=== PATIENT | female | born 1960 | race Caucasian/White ===

== ENCOUNTER 2025-02-16 12:08 | Inpatient (IN) ==
[2025-02-16] MEDS ORDERED: IOPAMIDOL 100 ML BOTTLE IV ONE (12:09)
[2025-02-16 12:54] LABS: Basophils # (Auto) 0.02 K/mcL (0.00-0.30); Basophils % (Auto) 0.1 % (0.0-2.0); Eosinophils # (Auto) 0.05 K/mcL (0.00-0.70); Eosinophils % (Auto) 0.3 % (0.0-7.0); Hematocrit 45.3 % (34.1-44.9); Hemoglobin 14.7 g/dL (11.2-15.7); Lymphocytes # (Auto) 1.51 K/mcL (1.50-4.80); Lymphocytes % (Auto) 9.0 % (15.5-49.0); Mean Corpuscular HGB Conc 32.5 g/dL (31.0-36.0); Monocytes # (Auto) 1.75 K/mcL (0.10-0.90); Monocytes % (Auto) 10.4 % (1.0-12.0); Neutrophils % (Auto) 80.0 % (38.0-78.0); Platelet Count 283 K/mcL (140-440); RBC 4.83 M/mcL (3.59-5.38); WBC 16.8 K/mcL (4.5-11.0)
[2025-02-16 13:03] LABS: ALT/SGPT 20 U/L (<40); AST/SGOT 16 U/L (<32); Albumin 4.0 gm/dL (3.2-5.2); Albumin/Globulin Ratio 1.5 (1.0-2.3); Alkaline Phosphatase 84 U/L (39-117); Anion Gap 13.0 (8.0-16.0); Bilirubin,Total 1.0 mg/dL (0.1-1.0); Blood Urea Nitrogen 10 mg/dL (8-23); Calcium 9.3 mg/dL (8.6-10.4); Carbon Dioxide 24 mmol/L (22-30); Chloride 98 mmol/L (96-108); Globulin 2.7 gm/dL (2.2-3.7); Glucose 108 mg/dL (70-105); Potassium 3.6 mmol/L (3.3-5.1); Sodium 135 mmol/L (133-145)
[2025-02-16 14:03] LABS: Bilirubin,Urine Negative (Negative); Color,Urine Yellow; Glucose,Urine (UA) Negative (Negative); Ketones,Urine 80 mg/dL (Negative); Leukocyte Esterase,Urine Trace /uL (Negative); PH,Urine 7.0 (5.0-9.0); Protein,Urine 30 mg/dL (Negative); Specific Gravity,Urine 1.020 (1.000-1.035); Urobilinogen,Urine Normal
[2025-02-16] MEDS: PIPERACILLIN SODIUM/TAZOBACTAM 3.375 GM in DEXTROSE 5% IN WATER 50 ML IV ONE (15:00)
[2025-02-16] MEDS ORDERED: ONDANSETRON 4 MG/2 ML VIAL IV PRN (15:44)
[2025-02-16] MEDS ORDERED: fentaNYL 100 MCG/2 ML VIAL IV PRN (15:49)
[2025-02-16] MEDS: 0.9 % SODIUM CHLORIDE 1,000 ML IV SCH (16:10)
[2025-02-16] MEDS: ACETAMINOPHEN 1,000 MG/100 ML BAG IV SCH (16:15)
[2025-02-16] MEDS: PANTOPRAZOLE 40 MG VIAL IV SCH (16:15)
[2025-02-16] MEDS: PIPERACILLIN SODIUM/TAZOBACTAM 3.375 GM in DEXTROSE 5% IN WATER 100 ML IV SCH ×2 (16:22→22:30)
[2025-02-16 16:29] LABS: INR 1.1 (0.9-1.1); Prothrombin Time 15.5 sec (11.9-14.5)
[2025-02-17 05:53] LABS: Basophils # (Auto) 0.03 K/mcL (0.00-0.30); Basophils % (Auto) 0.4 % (0.0-2.0); Eosinophils # (Auto) 0.17 K/mcL (0.00-0.70); Eosinophils % (Auto) 2.1 % (0.0-7.0); Hematocrit 41.3 % (34.1-44.9); Hemoglobin 13.5 g/dL (11.2-15.7); Lymphocytes # (Auto) 1.86 K/mcL (1.50-4.80); Lymphocytes % (Auto) 22.6 % (15.5-49.0); Mean Corpuscular HGB Conc 32.7 g/dL (31.0-36.0); Monocytes # (Auto) 0.92 K/mcL (0.10-0.90); Monocytes % (Auto) 11.2 % (1.0-12.0); Neutrophils % (Auto) 63.3 % (38.0-78.0); Platelet Count 245 K/mcL (140-440); RBC 4.37 M/mcL (3.59-5.38); WBC 8.2 K/mcL (4.5-11.0)
[2025-02-17 06:08] LABS: ALT/SGPT 17 U/L (<40); AST/SGOT 13 U/L (<32); Albumin 3.6 gm/dL (3.2-5.2); Albumin/Globulin Ratio 1.5 (1.0-2.3); Alkaline Phosphatase 79 U/L (39-117); Anion Gap 11.0 (8.0-16.0); Bilirubin,Direct 0.4 mg/dL (<0.3); Bilirubin,Total 1.0 mg/dL (0.1-1.0); Blood Urea Nitrogen 9 mg/dL (8-23); Calcium 8.7 mg/dL (8.6-10.4); Carbon Dioxide 25 mmol/L (22-30); Chloride 105 mmol/L (96-108); Globulin 2.4 gm/dL (2.2-3.7); Glucose 86 mg/dL (70-105); Phosphorous 3.4 mg/dL (2.5-4.5); Potassium 3.6 mmol/L (3.3-5.1); Sodium 141 mmol/L (133-145); Triglycerides 109 mg/dL (<150); Uric Acid 2.7 mg/dL (2.5-8.0)
[2025-02-18 06:04] LABS: Basophils # (Auto) 0.03 K/mcL (0.00-0.30); Basophils % (Auto) 0.6 % (0.0-2.0); Eosinophils # (Auto) 0.16 K/mcL (0.00-0.70); Eosinophils % (Auto) 3.4 % (0.0-7.0); Hematocrit 40.6 % (34.1-44.9); Hemoglobin 13.3 g/dL (11.2-15.7); Lymphocytes # (Auto) 1.56 K/mcL (1.50-4.80); Lymphocytes % (Auto) 33.2 % (15.5-49.0); Mean Corpuscular HGB Conc 32.8 g/dL (31.0-36.0); Monocytes # (Auto) 0.46 K/mcL (0.10-0.90); Monocytes % (Auto) 9.8 % (1.0-12.0); Neutrophils % (Auto) 52.8 % (38.0-78.0); Platelet Count 252 K/mcL (140-440); RBC 4.30 M/mcL (3.59-5.38); WBC 4.7 K/mcL (4.5-11.0)
[2025-02-19 05:57] LABS: Basophils # (Auto) 0.04 K/mcL (0.00-0.30); Basophils % (Auto) 0.8 % (0.0-2.0); Eosinophils # (Auto) 0.21 K/mcL (0.00-0.70); Eosinophils % (Auto) 4.2 % (0.0-7.0); Hematocrit 41.1 % (34.1-44.9); Hemoglobin 13.4 g/dL (11.2-15.7); Lymphocytes # (Auto) 1.99 K/mcL (1.50-4.80); Lymphocytes % (Auto) 39.3 % (15.5-49.0); Mean Corpuscular HGB Conc 32.6 g/dL (31.0-36.0); Monocytes # (Auto) 0.45 K/mcL (0.10-0.90); Monocytes % (Auto) 8.9 % (1.0-12.0); Neutrophils % (Auto) 46.6 % (38.0-78.0); Platelet Count 298 K/mcL (140-440); RBC 4.39 M/mcL (3.59-5.38); WBC 5.1 K/mcL (4.5-11.0)
[2025-02-19] MEDS ORDERED: IOPAMIDOL 100 ML BOTTLE IV ONE (08:49)
== END 2025-02-19 15:33 | disposition home or self-care (01) | DRG 392 ==
LOC: ED 12:08 → INTOOBSV 16:00 → MEDSUR 16:00
PROVIDERS: ADMIT Family Medicine Adult Medicine; ATTEND Family Medicine Adult Medicine